=== PATIENT | female | born 1985 | race African-American/Black ===

== ENCOUNTER 2017-01-08 10:53 | Emergency (ER) | payer OTHER ==
[~2017-01-08] VITALS: Ht 149.9 cm; Wt 53.5 kg
[~2017-01-08 10:53] MED LIST: CIPROFLOXACIN500 M1 PO; CLARITIN10 M2 PO; CORTIZONE-1028 GM TP; HYDROXYZINE PAM50 MG PO; IBUPROFEN 800800 MG PO; NOHOMEMEDICATIONS
[2017-01-08 10:54] VITALS: BP 121/86
[2017-01-08] MEDS ORDERED: MEDROL DOSPAK21 TAB PO (11:13)
== END 2017-01-08 11:39 | disposition home or self-care (01) ==
LOC: ER 10:53
DX: L50.8 Other urticaria (principal); F10.99 Alcohol use, unspecified with unspecified alcohol-induced disorder